=== PATIENT | female | born 1970 | race Caucasian/White ===

== ENCOUNTER 2018-11-10 16:36 | Emergency (ER) | payer OTHER ==
--- NOTE | 2018-11-10 17:23 | EDM.PDOC ---
ED HPI GENERAL MEDICAL PROBLEM - General Chief Complaint: Upper Extremity Injury/Pain Stated Complaint: ABSCESS ON WRIST Time Seen by Provider: 11/10/18 16:55 Source of Information: Reports: Patient History Limitations: Reports: No Limitations - History of Present Illness INITIAL COMMENTS - FREE TEXT/NARRATIVE: Jessie Stubbs presents to our ED with complaints of a "cyst" on her left wrist. She is noted to have some swelling and aVF lump on her distal left wrist. 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 She does have a history of carpal tunnel the past and does wear a brace for this. She reports she was wearing the brace today and when she went to remove that she noticed she had a large painful lump. She does tend to ice it and took some of her Fioricet which improved the pain. She reports pain radiates up her arm and is worse with thumb movement. She has noted some decreased tuck pointer helper strength due to pain. No history of any trauma or surgery to that hand. She reports she has been wearing her carpal tunnel brace for several years after being diagnosed. She is currently taking a Medrol Dosepak reports she has 4 pills left. This is for bone spurs in her feet. He fever, nausea, vomiting, chest pain, shortness of breath, or other infectious symptoms. She does have a history of anxiety, along with asthma and is a current smoker. Left Wrist Pain Score (Numeric/FACES): 7 - Related Data Allergies Allergy/AdvReac Type Severity Reaction Status Date / Time No Known Allergies Allergy Verified 11/10/18 16:47 Home Meds: Home Meds ALPRAZolam [Xanax] 1 mg PO BID PRN 11/10/18 [History] Acetaminophen with Codeine [Tylenol with Codeine #3 Tablet] 1 each PO Q6HR PRN # 20 tablet 11/10/18 [Rx] Acetaminophen/Butalbital/Caff [Fioricet 325-50-40 MG] 1 tab PO Q8HR PRN [History] Escitalopram [Lexapro] 15 mg PO DAILY 11/10/18 [History] Lisinopril 10 mg PO DAILY 11/10/18 [History] Omeprazole 40 mg PO DAILY 11/10/18 [History] predniSONE [Prednisone] 20 mg PO ASDIRECTED #18 tablet 11/10/18 [Rx] Past Medical History Cardiovascular History: Reports: High Cholesterol, Hypertension Respiratory History: Reports: Asthma Gastrointestinal History: Reports: GERD 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: , Other (See Below) Other SIGN PAINTER APPRENTICE History: c sections Musculoskeletal History: Reports: Arthritis Neurological History: Reports: Brain Injury, Migraines Psychiatric History: Reports: Anxiety, Depression Oncologic (Cancer) History: Reports: Other (See Below) Other Oncologic History: pre cancer cervical dysplasia - Past Surgical History HEENT Surgical History: Reports: Oral Surgery Social & Family History - Family History Family Medical History: Noncontributory - Tobacco Use Smoking Status *Q: Current Every Day Smoker Years of Tobacco use: 20 Packs/Tins Daily: 2 - Caffeine Use Caffeine Use: Reports: Soda - Recreational Drug Use Recreational Drug Use: No Review of Systems - Review of Systems Review Of Systems: See Below Constitutional: Reports: No Symptoms. Denies: Chills, Fever, Weakness Respiratory: Reports: No Symptoms. Denies: Shortness of Breath, Wheezing, Cough , Sputum Cardiovascular: Reports: No Symptoms. Denies: Chest Pain, Edema, Palpitations GI/Abdominal: Reports: No Symptoms. Denies: Abdominal Pain Musculoskeletal: Reports: No Symptoms, Other (Left wrist pain worse with Movement.) Skin: Reports: No Symptoms. Denies: Bruising, Pruritis, Rash Neurological: Reports: No Symptoms Psychiatric: Reports: Anxiety ED EXAM, GENERAL - Physical Exam Exam: See Below Exam Limited By: No Limitations General Appearance: Alert, WD/WN, No Apparent Distress, Anxious Head: Atraumatic, Normocephalic Respiratory/Chest: No Respiratory Distress, No Accessory Muscle Use, Decreased Breath Sounds, Wheezing Cardiovascular: Normal Peripheral Pulses, Regular Rate, Rhythm, No Edema, No Gallop, No JVD Peripheral Pulses: 3+: Radial (L), Radial (R), Dorsalis Pedis (L), Dorsalis Pedis (R) Extremities: Normal Range of Motion, No Pedal Edema, Joint Swelling (left wrist ), Other (Positive jose angel test. Pain radiates up hand ). No: Non-Tender ( tender over lesion on left wrist. ), Increased Warmth, Redness Neurological: Alert, Oriented Psychiatric: Anxious Skin Exam: Warm, Dry, Intact, Normal Color, No Rash Course - Vital Signs Last Recorded V/S: Last Vital Signs Temp 98.2 F 11/10/18 16:47 Pulse 77 11/10/18 16:47 Resp 16 11/10/18 16:47 BP 119/74 11/10/18 16:47 Pulse Ox 98 11/10/18 16:47 - Re-Assessments/Exams Free Text/Narrative Re-Assessment/Exam: In to see Marjorie. Exam appears to be De Quervain's Tenosynovitis likely exacerbated by her carpal tunnel brace. Will order a thumb spica splint. Order prednisone and Tylenol No. 3. 11/10/18 17:38 Departure - Departure Time of Disposition: 18:17 Disposition: Home, Self-Care 01 Condition: Good Clinical Impression: De Quervain's disease (tenosynovitis) - Discharge Information *PRESCRIPTION DRUG MONITORING PROGRAM REVIEWED*: No *COPY OF PRESCRIPTION DRUG MONITORING REPORT IN PATIENT EDMOND: No Prescriptions: Acetaminophen with Codeine [Tylenol with Codeine #3 Tablet] 1 each PO Q6HR PRN # 20 tablet PRN Reason: Pain predniSONE [Prednisone] 20 mg PO ASDIRECTED #18 tablet Instructions: De Quervain Tenosynovitis Referrals: Britt Lofton, CONFIGURATION MANAGER [Primary Care Provider] - Markus Morales PAFantaC [Physician Circular Saw Edge Fuser] - Additional Instructions: Your seen today in the ED for a small cystlike structure on your left wrist. If symptoms appear to be from the de Quervain's tensosynovitis. Provided materials on this with this discharge Your sent prescriptions for prednisone and Tylenol 3. He should take the prednisone 20 mg twice daily for 6 days and then 20 mg once daily for 6 days. You're also sent prescriptions for Tylenol No. 3 which is Tylenol and codeine. He should take 1 tablet every 6 hours as needed for pain. Be aware you should not operate heavy machinery or drive while on this medication. He will also provided a thumb splint for this. Old your thumb in a position to allow this to heal. You should avoid moving your thumb at all possible. We discussed following up with Markus Morales S he will sometimes deal with injecting these lesions. He can be contacted here at the clinic to set up an appointment and he said you are familiar with him. He also contacted Dr. Daniels[facility]. He is also located in our clinic. His office phone number is . You should follow-up with either location within 14 days if no improvement. Stop taking your medrol dose pack. Follow-up sooner should symptoms worsen.
== END 2018-11-10 18:25 | disposition home or self-care (01) ==
LOC: JD.ED 16:36
DX: M65.4 Radial styloid tenosynovitis [de Quervain] (principal); F17.210 Nicotine dependence, cigarettes, uncomplicated; E78.00 Pure hypercholesterolemia, unspecified; I10 Essential (primary) hypertension; K21.9 Gastro-esophageal reflux disease without esophagitis; J45.909 Unspecified asthma, uncomplicated; Z79.899 Other long term (current) drug therapy
CPT/HCPCS: 99282; 99283